=== PATIENT | male | born 1965 | race Two or more races ===

== ENCOUNTER 2021-09-22 02:00 | Emergency (ER) | payer OTHER ==
[~2021-09-22] VITALS: Ht 182.9 cm; Wt 127.0 kg
[2021-09-22] MEDS ORDERED: LIDOCAINE 1%HCL (LOCAL ANESTH) 10 ML MDV ONE (07:57)
[2021-09-22] MEDS ORDERED: TETANUS-DIPTH-ACEL PERTUSSIS 0.5ML SYR Tdap IM ONE (08:15)
[2021-09-22] MEDS ORDERED: ACET-1158 PO (08:31)
[2021-09-22] MEDS ORDERED: CEPH-509 PO (08:31)
[2021-09-22 08:39] VITALS: BP 135/67
== END 2021-09-22 08:38 | disposition home or self-care (01) ==
LOC: ER 02:08
DX: S61.213A Laceration without foreign body of left middle finger without damage to nail, initial encounter (principal); F17.210 Nicotine dependence, cigarettes, uncomplicated; W26.1XXA Contact with sword or dagger, initial encounter; Y93.89 Activity, other specified; Y92.9 Unspecified place or not applicable; Y99.9 Unspecified external cause status
CPT/HCPCS: 12002; 90471; 90715; 99283; J2001

== ENCOUNTER 2023-08-19 13:44 | Emergency (ER) | payer MEDICAID, OTHER ==
[~2023-08-19] VITALS: Ht 182.9 cm; Wt 129.1 kg
[~2023-08-19 13:44] MED LIST: ACET500T58 PO; CEPH-509 PO
[2023-08-19 15:19] LABS: Basophils # (auto) 0.1 10 ^3/uL (0-0.2); Basophils % (auto) 0.8 % (0.0-2.0); Eosinophils # (auto) 0.2 10 ^3/uL (0-0.8); Eosinophils % (auto) 2.5 % (0.0-7.0); Hematocrit 43.5 % (41.0-53.0); Lymphocytes # (auto) 1.5 10 ^3/uL (0.4-5.4); Mean Corpuscular Hemoglobin 28.2 pg (28.0-32.0); Mean Corpuscular Hgb Conc. 32.1 g/dL (32.0-36.0); Mean Corpuscular Volume 87.8 fL (80.0-100.0); Monocytes # (auto) 0.8 10 ^3/uL (0-1.3); Monocytes % (auto) 9.1 % (0.0-12.0); Neutrophils # (auto) 5.8 10 ^3/uL (1.6-8.6); Neutrophils % (auto) 69.6 % (37.0-80.0); Red Blood Cells 4.96 10^6/uL (4.5-5.90); Red Cell Distribution Width 15.4 % (11.8-14.3); White Blood Cell 8.4 10^3/uL (4.4-10.8)
[2023-08-19 15:29] LABS: Chloride 108 mmol/L (98-107); Potassium 3.9 mmol/L (3.5-5.1); Sodium 140 mmol/L (136-145)
[2023-08-19 15:30] LABS: Anion Gap 8 (5-15); Calcium 9.8 mg/dL (8.5-10.1); Carbon Dioxide 24 mmol/L (20-30)
[2023-08-19 15:35] VITALS: PULSE 73; RESP 20; O2SAT 96
[2023-08-19 15:35] LABS: BUN/Creatinine Ratio 10.1 (10.0-20.0); Blood Urea Nitrogen 8 mg/dL (9-23); Glucose 98 mg/dL (74-106)
[2023-08-19 16:47] LABS: INR 3.2 (0.9-1.15); Partial Thromboplastin Time 45.4 SEC (24.5-34.5); Prothrombin Time 31.1 sec (9.3-11.8)
[2023-08-19 16:52] LABS: Erythrocyte Sedimentation Rate 41 mm/hr (0-20)
[2023-08-19 18:58] VITALS: BP 130/85; PULSE 96; RESP 29; O2SAT 94
== END 2023-08-19 19:05 | disposition home or self-care (01) ==
LOC: ER 13:44
DX: I96 Gangrene, not elsewhere classified (principal); I82.A11 Acute embolism and thrombosis of right axillary vein; M10.9 Gout, unspecified; E78.5 Hyperlipidemia, unspecified; F17.210 Nicotine dependence, cigarettes, uncomplicated; Z79.899 Other long term (current) drug therapy
CPT/HCPCS: 36415; 73200; 80048; 85025; 85610; 85652; 85730